=== PATIENT | female | born 1960 | race Caucasian/White ===

== ENCOUNTER 2019-03-17 16:22 | Observation (INO) | payer BC ==
--- NOTE | 2019-03-17 16:31 | ED ---
Abdominal Pain/Female - HPI Summary HPI Summary: 58-year-old female with no significant past medical history presents to the emergency department today complaining of 7 out of 10 stabbing abdominal pain which is located in her entire lower abdomen. She states the pain began last night and has been constant since then. She states the pain woke her up last evening and is relieved by sitting in a position. She states the pain radiates to her right flank. She states she has no appetite and she has not taken any medication for her symptoms prior to arrival and she worried it would bother her stomach. Patient denies history of abdominal surgery. Family history is noncontributory. She denies fevers, chills, blood per rectum, dark stools, diarrhea, nausea, vomiting, fever, rash, pain of urination, vaginal discharge. She admits to heavy smoking history, occasional alcohol use, no recreational drug use. - History of Current Complaint Chief Complaint: EDAbdPain Stated Complaint: ABDOMINAL PAIN PER PT Time Seen by Provider: 03/17/19 16:30 Hx Obtained From: Patient Onset/Duration: Sudden Onset Timing: Constant Severity Initially: Mild Severity Currently: Severe Pain Intensity: 7 Pain Scale Used: 0-10 Numeric Location: Discrete At: RLQ, Discrete At: LLQ Radiates: Yes Radiates to: Flank - Right flank Character: Sharp Aggravating Factor(s): Movement Alleviating Factor(s): Position - position Associated Signs and Symptoms: Positive: Decreased Appetite. Negative: Diaphoresis, Fever, Chest Pain, Constipation, Blood in Stool, Urinary Symptoms, Vaginal Bleeding, Vaginal Discharge, Nausea, Vomiting, Diarrhea Allergies/Adverse Reactions: Allergies Allergy/AdvReac Type Severity Reaction Status Date / Time No Known Allergies Allergy Verified 03/17/19 16:29 Home Medications: Home Medications NK [No Home Medications Reported] 03/17/19 [History Confirmed 03/17/19] PMH/Surg Hx/FS Hx/Imm Hx Musculoskeletal History: Denies: Hx Rheumatoid Arthritis, Hx Osteoporosis Infectious Disease History: No Infectious Disease History: Denies: Traveled Outside the [place] in Last 30 Days Review of Systems Constitutional: Negative Eyes: Negative ENT: Negative Cardiovascular: Negative Respiratory: Negative Positive: Abdominal Pain. Negative: Vomiting, Diarrhea, Nausea Genitourinary: Negative Musculoskeletal: Negative Skin: Negative Neurological: Negative Psychological: Normal All Other Systems Reviewed And Are Negative: Yes Physical Exam - Summary Physical Exam Summary: Inspection of the abdomen reveals no ecchymosis or masses. Auscultation reveals normoactive bowel sounds. Percussion is within normal limits. Palpation of the abdomen reveals tenderness to the left and right lower abdominal quadrants. Patient complains of rebound tenderness to the lower abdominal quadrants bilaterally. Negative Rovsing, Moore's, obturator, psoas, McBurney's sign. Triage Information Reviewed: Yes Vital Signs On Initial Exam: Initial Vitals Temp Pulse Resp BP Pulse Ox 97.9 F 79 16 117/77 99 03/17/19 16:26 12 16:26 03/17/19 16:26 03/17/19 16:26 03/17/19 16:26 Vital Signs Reviewed: Yes Appearance: Positive: Well-Appearing, No Pain Distress, Well-Nourished Skin: Positive: Warm, Skin Color Reflects Adequate Perfusion Eyes: Positive: EOMI, CHETAN ENT: Positive: Hearing grossly normal Respiratory/Lung Sounds: Positive: Clear to Auscultation, Breath Sounds Present Cardiovascular: Positive: RRR, S1, S2 Abdomen Description: Positive: Soft. Negative: CVA Tenderness (R), CVA Tenderness (L), Distended, Guarding, McBurney's Point Tenderness Bowel Sounds: Positive: Present Musculoskeletal: Positive: Strength/ROM Intact - Normoactive Neurological: Positive: Sensory/Motor Intact, Alert, Oriented to Person Place, Time, Normal Gait, Speech Normal Psychiatric: Positive: Normal AVPU Assessment: Alert Procedures - Sedation Patient Received Moderate/Deep Sedation with Procedure: No Diagnostics - Vital Signs Vital Signs Temp Pulse Resp BP Pulse Ox 03/17/19 16:26 97.9 F 79 16 117/77 99 - Laboratory Result Diagrams: 03/17/19 17:01 03/17/19 17:01 Lab Statement: Any lab studies that have been ordered have been reviewed, and results considered in the medical decision making process. Abdominal Pain Fem Course/Dx - Course Course Of Treatment: Patient was evaluated in the emergency department today for abdominal pain. Patient seen and examined her vitals are stable and she is afebrile. Labs show no evidence of leukocytosis with white blood count of 10.8. Elevated absolute neutrophil count at 9.6. C-reactive protein is 143.26 which is elevated. There are minor electrolyte disturbances but these are considered benign. Lipase is less than 10. - Diagnoses Differential Diagnosis: Positive: Appendicitis, Diverticulitis, Irritable Bowel Syndrome, Ovarian Cyst, Pancreatitis, Peptic Ulcer Disease, Renal Colic, Urinary Tract Infection Provider Diagnoses: Abdominal pain Discharge ED - Sign-Out/Discharge Documenting (check all that apply): Sign-Out Patient Signing out patient TO: Didi German Receiving patient FROM: Abhinav Moya - Discharge Plan Patient Education Materials: Acute Abdominal Pain (ED) Referrals: Yemi Estevez NP [Primary Care Provider] -
[2019-03-17] MEDS ORDERED: Ketorolac INJ* 30 MG/ML 1 ML VIAL IV ONE (16:46)
[2019-03-17 17:11] LABS: ABS Lymphocytes 0.5 10^3/ul (1.0-4.8); ABS Monocytes 0.7 10^3/ul (0-0.8); ABS Neutrophils 9.6 10^3/ul (1.5-7.7); Hematocrit 38 % (35-47); Hemoglobin 13.3 g/dL (12.0-16.0); Lymphocyte % 4.6 %; Mean Corpuscular HGB Conc 35 g/dL (31-36); Mean Corpuscular Hemoglobin 32 pg (27-31); Mean Corpuscular Volume 92 fL (80-97); Mean Platelet Volume 8.5 fL (7.4-10.4); Nucleated Red Blood Cells % 0.1; Platelet Count 193 10^3/uL (150-450); Red Blood Count 4.13 10^6 /uL (3.70-4.87); Red Cell Distribution Width 14 % (10-15); White Blood Count 10.8 10^3/uL (3.5-10.8)
[2019-03-17 17:26] LABS: ALT 13 U/L (7-52); AST 12 U/L (13-39); Albumin 4.3 g/dL (3.2-5.2); Albumin/Globulin Ratio 1.6 (1-3); Alkaline Phosphatase 60 U/L (34-104); Anion Gap 8 mmol/L (2-11); BUN/Creatinine Ratio 14.7 (8-20); Blood Urea Nitrogen 11 mg/dL (6-24); C Reactive Protein 143.26 mg/L (<8.01); CO2 Carbon Dioxide 26 mmol/L (22-32); Calcium 10.7 mg/dL (8.6-10.3); Chloride 100 mmol/L (101-111); EGFR African American 95.7 (>60); EGFR Non-African American 79.1 (>60); Globulin 2.7 g/dL (2-4); Glucose 116 mg/dL (70-100); Magnesium 1.7 mg/dL (1.9-2.7); Potassium 3.9 mmol/L (3.5-5.0); Sodium 134 mmol/L (135-145)
[2019-03-17] MEDS ORDERED: Morphine 4 MG/ML VIAL (1 ml) 4 MG/ML VIAL IV ONE ×2 (17:40→20:50)
[2019-03-17] MEDS ORDERED: Ondansetron INJ* 2 MG/ML VIAL IV ONE (17:40)
--- NOTE | 2019-03-17 17:49 | ED ---
Progress - Results/Orders Results/Orders: ct abd: IMPRESSION: 1. Findings compatible with acute sigmoid diverticulitis without complication. 2. Thickening involving the distal aspect of the appendix measuring 8 mm which is in the region of sigmoid inflammation. Thickening may be reactive, appendicitis however cannot be excluded. Re-Evaluation - Re-Evaluation First Eval Re-Evaluation Time: 18:46 Change: Improved Comment: feeling better Second Eval Re-Evaluation Time: 20:48 Comment: still tenderness of RLQ and LLQ, tender to mcburney point. will give more pain meds Course/Dx - Course Course Of Treatment: Patient was evaluated in the emergency department today for abdominal pain. Patient seen and examined her vitals are stable and she is afebrile. Labs show no evidence of leukocytosis with white blood count of 10.8. Elevated absolute neutrophil count at 9.6. C-reactive protein is 143.26 which is elevated. There are minor electrolyte disturbances but these are considered benign. Lipase is less than 10. CT abd shows divericulitis and potential appendicitis. will give cefepime and flagyl. discussed with dr mercado who looked at CT scan and said that is not appendicitis and does not need surgery. patient is in a lot of pain so will admit to hospitalist. dr nolasco agrees to admit. - Diagnoses Provider Diagnoses: Diverticulitis Discharge ED - Sign-Out/Discharge Documenting (check all that apply): Patient Departure, Receiving Sign-Out Receiving patient FROM: Abhinav Moya - Discharge Plan Condition: Stable Disposition: ADMITTED TO [facility] Referrals: Yemi Estevez NP [Primary Care Provider] - - Billing Disposition and Condition Condition: STABLE Disposition: Admitted to [facility]
[2019-03-17] MEDS ORDERED: Iohexol 300* (CONTRAST) 10 ML SDV IV ONE (19:12)
[2019-03-17 19:27] LABS: Urine Appearance Clear; Urine Bilirubin Negative (Negative); Urine Blood 1+ (Negative); Urine Color Yellow; Urine Glucose Negative (Negative); Urine Ketones 1+ (Negative); Urine Nitrite Negative (Negative); Urine Protein Negative (Negative); Urine Urobilinogen Negative (Negative)
[2019-03-17 19:31] LABS: Urine Bacteria Absent (Absent); Urine Red Blood Cell Trace(0-2/hpf) (Absent); Urine Squamous Epithelial Cell Present (Absent); Urine White Blood Cell Trace(0-5/hpf) (Absent)
[2019-03-17] MEDS ORDERED: metroNIDAZOLE IV 500 MG/100ML* 500 MG/100 ML BAG IVPB ONE (20:42)
[2019-03-17] MEDS ORDERED: Cefepime 2 GM in Dextrose(*) 2 GM/50 ML BAG IV ONE (20:42)
[2019-03-17] MEDS ORDERED: Morphine 4 MG/ML VIAL (1 ml) 4 MG/ML VIAL IV PRN (23:03)
[2019-03-17] MEDS ORDERED: Ketorolac INJ* 15 MG/ML 1 ML VIAL IV PUSH PRN (23:04)
[2019-03-17] MEDS ORDERED: Acetaminophen TAB* 325 MG PO PRN (23:05)
[2019-03-17] MEDS ORDERED: Ondansetron INJ* 2 MG/ML VIAL IV PRN (23:06)
[2019-03-17] MEDS ORDERED: Magnesium Sulfate 1 GM IV* 1 GM/100 ML BAG IV ONE (23:55)
[2019-03-18] MEDS: Lactated Ringers 1000 ML Bag* 1,000 ML IV SCH ×2 (00:19→08:31)
--- NOTE | 2019-03-18 01:02 | HP ---
CC: Yemi Estevez NP * ADMISSION HISTORY AND PHYSICAL: DATE OF ADMISSION: 03/17/19 PRIMARY CARE PHYSICIAN: Yemi Estevez NP. CHIEF COMPLAINT: Abdominal pain. HISTORY OF PRESENT ILLNESS: This is a 58-year-old female who is otherwise healthy, does state that she has some diarrheal-type symptoms whenever she get stressed and self-diagnosed as IBS but real no medical problems, comes in due to abdominal pain. The patient stated that she was in her usual state of health up until Monday morning when she was in [place] and she did not think about her lower abdominal pain and started driving on Monday, arrived in [place] and noted that her pain was getting worse. She did have dinner on Monday night thinking that the worst of the pain was over; however, at 11 p.m. on Monday, she woke up with waves of pain coming in to the point that she was not able to tolerate. She finally decided to come to the ER on evening as the pain would not subside on its own. She denied any accompanying nausea or vomiting. She denied any change in her bowel patterns, any fever or chills, any sick contacts, any other shortness of breath or cough, or any previous such episodes of abdominal pain. She was noted to have diverticulitis and was also concerned for having some kind of an appendiceal inflammation; however, review of the CAT scan from surgeon suggested that this is likely not appendix related and Medicine was consulted to admit the patient for better pain control. PAST MEDICAL HISTORY: As mentioned, there was no significant diagnosed medical problems. She is otherwise healthy. Does think that has some irritable bowel syndrome. PAST SURGICAL HISTORY: She has had a right Achilles tendon surgery and wisdom tooth removal. MEDICATIONS: Currently not taking any home medications. ALLERGIES: No known drug allergies. FAMILY HISTORY: Father at the age of 94, had a history of diverticulitis. Mother alive at age 89, otherwise healthy. Older brother also alive and well. SOCIAL HISTORY: She lives with her female partner who is also her healthcare proxy, otherwise full code. She has a history of smoking about 5 to 6 cigarettes on a daily basis for the last 40 years. Does drink alcohol on a nightly basis, usually a glass of wine but nothing more and the glass consists of a 6-ounce glass. Her last use of alcohol was for Thanksgiving with her family. She denies any other drug use. 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 REVIEW OF SYSTEMS: A 14-point review of systems did not reveal any new information other than what is mentioned in the HPI. PHYSICAL EXAMINATION GENERAL: The patient is awake, alert, and oriented x3, did not appear to be in any acute respiratory distress. VITAL SIGNS: In the ER, temperature max was noted to be 98.6, BP was noted to be 118/72, heart rate 63, respiration rate 16, saturating 97% on room air. HEAD AND NECK: Atraumatic, normocephalic. Bilateral pupils reactive. Oral mucosa was dry. Neck: Supple. No jugular venous distention. LUNGS: Clear to auscultation bilaterally. No wheezing, rhonchi, or rales. HEART: S1, S2. Regular rate and rhythm. ABDOMEN: Soft. Tender at the lower abdomen, worse at the left lower quadrant and some guarding was noted along with some rebound tenderness. EXTREMITIES: No cyanosis, clubbing, or edema. DIAGNOSTIC STUDIES/LAB DATA: CBC was unremarkable. Comprehensive metabolic panel shows mildly decreased sodium at 134 and magnesium minimally decreased at 1.7. C- reactive protein was noted to be elevated at 143. Lipase was noted to be less than 10. Urinalysis was negative for any leuk esterase or nitrite. CT abdomen and pelvis showed findings compatible with acute sigmoid diverticulitis without complication, thickening involving the distal aspect of the appendix measuring 8 mm, which is in the region of sigmoid inflammation, thickening may be reactive appendicitis; however, cannot be excluded. IMPRESSION: This is a 58-year-old female here with lower abdominal pain likely secondary to diverticulitis. ASSESSMENT AND PLAN: 1. Abdominal pain secondary to acute diverticulitis. We will start the patient on Cipro, Flagyl. Keep the patient n.p.o. and on IV hydration. Start the patient on p.r.n. pain medications and nausea medications. Could consider GI versus surgical consult in the morning if her symptoms did not improve. 2. Hyponatremia. Likely secondary to dehydration. 3. Hypomagnesemia. We will replace magnesium. 4. Code status: Full code. 5. DVT prophylaxis with sequential compression device. [id number]/[facility] #: [id number] [facility]
[2019-03-18] MEDS: Morphine INJ* 4 MG/ML 1 ML SYRINGE (NEW SYRINGE VERSION) IV PRN ×3 (03:46→13:07)
[2019-03-18 05:27] LABS: ABS Lymphocytes 0.9 10^3/ul (1.0-4.8); ABS Monocytes 0.7 10^3/ul (0-0.8); ABS Neutrophils 8.6 10^3/ul (1.5-7.7); Eosinophil % 0.1 %; Hematocrit 36 % (35-47); Hemoglobin 12.5 g/dL (12.0-16.0); Lymphocyte % 8.7 %; Mean Corpuscular HGB Conc 35 g/dL (31-36); Mean Corpuscular Hemoglobin 32 pg (27-31); Mean Corpuscular Volume 92 fL (80-97); Mean Platelet Volume 8.7 fL (7.4-10.4); Platelet Count 160 10^3/uL (150-450); Red Blood Count 3.87 10^6 /uL (3.70-4.87); Red Cell Distribution Width 13 % (10-15); White Blood Count 10.2 10^3/uL (3.5-10.8)
[2019-03-18] MEDS: metroNIDAZOLE IV 500 MG/100ML* 500 MG/100 ML BAG IVPB SCH ×3 (05:40→22:06)
[2019-03-18 05:48] LABS: BUN/Creatinine Ratio 14.1 (8-20); Calcium 9.5 mg/dL (8.6-10.3); EGFR African American 91.5 (>60); EGFR Non-African American 75.6 (>60); Potassium 3.9 mmol/L (3.5-5.0)
[2019-03-18] MEDS: Ciprofloxacin 400MG IVPREMIX(* 400 MG/200 ML BAG IVPB SCH ×2 (08:29→19:46)
--- NOTE | 2019-03-18 14:34 | PN ---
Progress Note - Progress Note Date of Service: 03/18/19 Note: Surgery Consult dictated. CT reviewed w/ Dr. Daley (who also reviewed w/ radiology); no real concern for acute appendicitis. All appears to be c/w acute diverticulitis. Agree w/ current IV abx and relative bowel rest (clear liqs should be ok). No need for immediate or urgent surgical intervention. We will follow closely while she is an inpatient.
--- NOTE | 2019-03-18 16:38 | PN ---
Progress Note - Progress Note Date of Service: 03/18/19 Note: pt seen/examined, ct scan reviewed imp : diverticulitis plan: conservative tx- IV abx, daily eval
--- NOTE | 2019-03-18 17:08 | PN ---
Subjective Date of Service: 03/18/19 Interval History: Ms. Thomas is not particularly feeling better. She is still having significant abdominal pain. Morphine is helping take the pain from 8/10 to 6/ 10. She has been able to tolerate a small amount of soft food without any worsening pain. No N/V/D. No concerns from nursing. Family History: Unchanged from Admission Social History: Unchanged from Admission Past Medical History: Unchanged from Admission Objective Active Medications: Acetaminophen (Tylenol Tab*) 650 mg PO Q4H PRN PAIN - MILD Ciprofloxacin/Dextrose (Cipro 400 Mg Ivpremix(*)) 400 mg in 200 mls @ 200 mls/ hr IVPB Q12H DENA; Protocol Metronidazole/Sodium Chloride (Flagyl 500 Mg Ivpb*) 500 mg in 100 mls @ 100 mls /hr IVPB 0600,1400,2200 DENA Lactated Ringer's (Lactated Ringers 1000 Ml Bag*) 1,000 mls @ 150 mls/hr IV PER RATE DENA Ketorolac Tromethamine (Toradol Inj*) 15 mg IV PUSH Q6H PRN PAIN - MODERATE Morphine Sulfate (Morphine Inj (Syringe)*) 4 mg IV Q4H PRN PAIN - SEVERE Ondansetron HCl (Zofran Inj*) 4 mg IV Q4H PRN NAUSEA/VOMITING Vital Signs - 8 hr 03/18/19 03/18/19 03/18/19 09:53 11:00 13:07 Temperature Pulse Rate 59 Respiratory 18 17 20 Rate Blood Pressure 110/66 (mmHg) O2 Sat by Pulse 95 Oximetry 03/18/19 03/18/19 15:00 15:30 Temperature 99.8 F Pulse Rate 55 Respiratory 16 16 Rate Blood Pressure 104/59 (mmHg) O2 Sat by Pulse 98 Oximetry Oxygen Devices in Use Now: None Appearance: Middle-aged female lying in bed in NAD Ears/Nose/Mouth/Throat: Mucous Membranes Moist Neck: NL Appearance and Movements; NL JVP, Trachea Midline Respiratory: Symmetrical Chest Expansion and Respiratory Effort, Clear to Auscultation Cardiovascular: NL Sounds; No Murmurs; No JVD, RRR Abdominal: - - Normoactive BS, tender throughout, worst in LLQ Neurological: Alert and Oriented x 3 Lines/Tubes/Other Access: Clean, Dry and Intact Peripheral IV Nutrition: Taking PO's Result Diagrams: 03/18/19 05:05 03/18/19 05:05 Assess/Plan/Problems-Billing Assessment: Ms. Thomas is a 58 yo F with no significant PMH; who presented to the ED with c/o abdominal pain and was found to have acute diverticulitis with CT findings concerning for possible appendicitis. - Patient Problems (1) Acute diverticulitis Code(s): K57.92 - DVTRCLI OF INTEST, PART UNSP, W/O PERF OR ABSCESS W/O BLEED Comment: - Presented with abdominal pain - CT showing findings compatible with sigmoid diverticulitis with thickening involving the distal aspect of the appendix - Appreciate Surgery consult; no concerns for appendicitis, recommends IV abx - Advance to soft diet as tolerated - Continue cipro, Flagyl, morphine (2) DVT prophylaxis Code(s): Z29.9 - ENCOUNTER FOR PROPHYLACTIC MEASURES, UNSPECIFIED Comment: - SCDs (3) Full code status Code(s): Z78.9 - OTHER SPECIFIED HEALTH STATUS Comment: Status and Disposition: Observation. Anticipate d/c home tomorrow if medically stable. Attending: Chase Goldberg
[2019-03-18] MEDS: oxyCODONE/Acetamin 5/325 MG* TAB PO PRN ×2 (17:22→23:18)
--- NOTE | 2019-03-18 18:05 | CONS ---
CC: Yemi Estevez NP, [facility] * SURGICAL CONSULTATION NOTE: DATE OF CONSULT: 03/18/19 ATTENDING SURGEON: Dr. Yohannes Daley.* (DICTATED BY AURA TSAI) HISTORY OF PRESENT ILLNESS: This is a 58-year-old generally healthy female who noted onset of mid abdominal pain Monday morning while visiting family in [place]. She was able to travel home and eat normally Monday evening. However, late Monday evening, she began to experience colicky mid to lower abdominal pain, which she states reached a level of 8/10 at peak. She states that pain continued to wax and wane throughout the night and through the day on Monday and she eventually presented to the ED later in the day on Monday. She denies nausea or vomiting. She denies fever, though did feel a bit chilled a couple of times. Her last bowel movement was Monday and described as normal. She has not passed much gas over the last 24 to 48 hours. She has not had any prior similar symptoms, though does state that she has self diagnosed irritable bowel syndrome, which is diarrhea predominant and generally controlled by diet. She has not had any symptoms. Prior colonoscopy was done in 2009 which she states was a normal study. She is not aware of any findings of diverticulosis at that time and that report is not immediately available. There was a family history of diverticulitis. PAST MEDICAL HISTORY: Possible irritable bowel syndrome, diarrhea predominant. PAST SURGICAL HISTORY: Previous surgeries include right Achilles tendon repair and dental extractions. CURRENT MEDICATIONS: She takes no prescription medications at home, but does take the following supplements: 1. Vitamin D. 2. Calcium. 3. Multivitamin. 4. Kosovan herbal medications for menopausal symptoms. Current in-hospital medications include: 1. IV Cipro. 2. Flagyl. FAMILY HISTORY: Negative for anesthesia problems, bleeding or clotting disorders. SOCIAL HISTORY: The patient lives with her partner. 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 Per her chart history, she smokes 5 to 6 cigarettes per day for the past 40 years and drinks on average 1 glass of wine per day. REVIEW OF SYSTEMS: As per the admission history and physical. No additions. PHYSICAL EXAM: Height 5 feet 9-1/2 inches, weight 148 pounds. T-max 100.2, most recent 99.6; blood pressure 108/60; pulse 63; respirations 16; room air saturation 96%. General: Well-nourished, well-developed female, in no acute distress, though she appears mildly uncomfortable. Skin: Warm and dry. No suspicious rashes or lesions. HEENT: Pupils are equal and round, reactive. EOMs intact. No conjunctival pallor. Oropharynx: Mucous membranes slightly dry. No intraoral lesions. Neck: No lymphadenopathy, thyromegaly, or masses. Heart: Regular rate and rhythm. No murmur appreciated. Lungs: Clear to auscultation. No rales or wheezes. Abdomen: Mildly distended, slightly firm. Bowel sounds present. She has tenderness in the lower mid abdomen, predominant slightly to the right of midline. Tenderness decreases laterally. There is some mild tenderness in the left lower quadrant as well, though not as pronounced. No flank tenderness. No upper abdominal tenderness. No peritoneal signs. Genitalia and Rectal: Not done. DIAGNOSTIC STUDIES/LAB DATA: White blood cell count on admission 10,800 with repeat 10,200 and without significant shift, hemoglobin 12.5. Chemistries: Generally within normal limits with the exceptions of sodium 133, magnesium 1.7 , total bilirubin 1.5, CRP of 143. Liver function tests and lipase were normal. CT scan with oral and IV contrast was personally reviewed and with Dr. Daley. This shows sigmoid diverticulosis with inflammatory changes consistent with acute diverticulitis. No evidence of perforation. There was felt to be some thickening of the distal appendix measuring up to 8 mm, but upon review by Dr. Daley with one of the radiologists today, this was not felt to represent acute appendicitis. IMPRESSION: Acute diverticulitis, uncomplicated. PLAN: Agree with current plan for IV antibiotics and relative bowel rest. The patient seems to be tolerating clear liquids well. The patient will be seen by Dr. Daley as well to confirm findings and impression. We will follow daily while she is an in- house patient. AURA TSAI [id number]/[facility] #: [id number] MTDD
[2019-03-18] MEDS: Lactobacillus Acidophilus* 1 TAB PO SCH (19:45)
[2019-03-19] MEDS: metroNIDAZOLE IV 500 MG/100ML* 500 MG/100 ML BAG IVPB SCH (05:39)
[2019-03-19] MEDS: oxyCODONE/Acetamin 5/325 MG* TAB PO PRN (05:54)
[2019-03-19 07:15] VITALS: BP 121/69
[2019-03-19] MEDS: Lactobacillus Acidophilus* 1 TAB PO SCH (08:07)
[2019-03-19] MEDS: Ciprofloxacin 400MG IVPREMIX(* 400 MG/200 ML BAG IVPB SCH (08:08)
--- NOTE | 2019-03-19 09:35 | PN ---
Progress Note - Progress Note Date of Service: 03/19/19 Note: Surgery Progress: S: feeling better; pain controlled w/ Percocet; passing flatus O: Vital Signs - 8 hr 03/19/19 03/19/19 03/19/19 03:15 03:52 05:54 Temperature 98.8 F Pulse Rate 44 Respiratory 16 19 18 Rate Blood Pressure 93/54 (mmHg) O2 Sat by Pulse 99 Oximetry 03/19/19 03/19/19 03/19/19 07:14 08:10 08:21 Temperature 98.1 F Pulse Rate 52 Respiratory 16 16 16 Rate Blood Pressure 121/69 (mmHg) O2 Sat by Pulse 99 Oximetry Intake and Output Last 24 Hours 03/17/19 03/18/19 03/19/19 03/20/19 06:59 06:59 06:59 06:59 Intake Total 150 4273 Output Total 1999 Balance 150 2273 Weight 148 lb Intake: IV Fluids 150 2803 ABX - CIPROFLOXACIN 216 LR 2216 NS 35 IVPB 450 ABX - CIPROFLOXACIN 200 ABX - FLAGYL 220 NS 30 Oral 0 1020 Output: Urine 1999 Other: Estimated Void Large # Voids 1 Heart: reg; mildly darya Lungs: clear Abd: +BS; less firm; less tender vs 03/18. No peritoneal signs. A: diverticulitis, improving P: per hosp: home today on Cipro/flagyl. Will set up surgical f/u in ~ 2 wks. Will need colonoscopy in near future (6-[address] Daley aware of plan.
--- NOTE | 2019-03-19 21:57 | DS ---
CC: Yemi Estevez NP; Dr. Yohannes Daley * DISCHARGE SUMMARY: DATE OF ADMISSION: 03/17/19 DATE OF DISCHARGE: 03/19/19 PRIMARY CARE PROVIDER: Yemi Estevez NP ATTENDING PHYSICIAN: Dr. Chase Goldberg.* (DICTATED BY EMILY WICK NP) PRIMARY DIAGNOSIS: Acute sigmoid diverticulitis. STUDIES WHILE IN THE HOSPITAL: Abdomen and pelvis CT on 03/17/19 reads as the findings compatible with acute sigmoid diverticulitis without complications, thickening involving the distal aspect of the appendix measuring 8 mm which is on the region of sigmoid inflammation, thickening may be reactive, and appendicitis, however, cannot be excluded. HISTORY OF PRESENT ILLNESS AND HOSPITAL COURSE: Ms. Thomas is a 58-year-old female with no significant past medical history, who presented to the emergency room on 03/17/19 with complaints of abdominal pain. Please see the history and physical by Dr. Whitaker, for a complete summary of the events leading up to this hospitalization. In short, the patient began having abdominal pain approximately 2 days prior to admission. Ultimately, the pain became severe enough that she was unable to tolerate it and so she presented to the emergency room. In the emergency room, she had a CT as noted above, which was remarkable for acute diverticulitis. There was no leukocytosis, fever, tachypnea or tachycardia. CRP was noted to be elevated at 143. She was admitted by the hospitalist service. The patient was started on ciprofloxacin and Flagyl for treatment of diverticulitis. Because of concern for possible appendicitis, Surgery was consulted and the patient was seen by Dr. Daley on 03/18/19. At that point, he did not have any concerns about appendicitis and recommended continuing current management. The patient was able to tolerate clear liquids yesterday and had a small amount of solid food last night. She was still having significant pain yesterday and was requiring IV morphine. The patient was able to use Percocet overnight last night with good relief of pain and did not require any additional morphine. She reports that pain generally has improved significantly. She was able to tolerate a solid breakfast this morning. AURA Naik from Surgery did see the patient again this morning and advised that the patient would need followup with surgery in approximately 2 weeks and a colonoscopy in the near future in approximately 6 to 8 weeks. On exam, the patient is alert and oriented x4. She has no focal neurological deficits. Heart has a regular rate and rhythm without murmurs, rubs, or gallops. Lungs are clear to auscultation without rhonchi, wheezes, or rubs. Abdomen is soft, slightly distended, diffusely tender throughout, worse in the left lower quadrant. Bowel sounds are normoactive. Physical exam was otherwise benign. Ms. Thomas is stable for discharge today. Most recent vitals are as follows: Temp 98.1, heart rate 52, respiratory rate 16, oxygen saturation 99% on room air , blood pressure 121/69. DISCHARGE MEDICATIONS: New medications: 1. Ciprofloxacin 500 mg p.o. b.i.d. x8 days. 2. Flagyl 500 mg p.o. t.i.d. x5 days. 3. Percocet 5/325 one tab p.o. q.4 hours p.r.n. pain. 4. Lactobacillus 1 tab p.o. b.i.d. DISCHARGE PLAN: Ms. Thomas will be discharged home. Activity will be as tolerated. Diet will be regular as tolerated, though she understands that she will need to gradually increase her diet over the next few days. Medications are noted above. The patient will need to complete 8 days of Cipro and Flagyl to complete a total of 10 days of antibiotic therapy for her acute diverticulitis. I have sent in a small supply of Percocet for any lingering abdominal pain and I have advised her that she can use a probiotic twice daily while she is on the antibiotics, but she has had difficulty tolerating antibiotics in the past due to GI side effects. I did provide her with a work note indicating that she will remain out of work for the rest of this week and can return to work next week. She will need to follow up with her primary care provider in the next 4 to 7 days. Again, she will need to follow up with Dr. Daley in the office in approximately 2 weeks. The surgical team will set up that appointment and contact the patient. Additionally, she will need to have a colonoscopy in approximately 6 to 8 weeks, which will be arranged by Dr. Daley. The patient should return to the emergency room or nearest hospital for any worsening of symptoms, shortness of breath, lightheadedness, dizziness, chest discomfort, high fevers, chills, night sweats, loss of consciousness, or any other worrisome signs or symptoms. DISCHARGE CONDITION: Stable. DISCHARGE DISPOSITION: Home. This is a summarized report of a complex medical history and hospital stay. For further details, please see the entire medical record. TIME SPENT: Approximately 45 minutes was spent on this discharge. EMILY WICK [employer] [id number]/CPS #: [id number] NATALIYA
== END 2019-03-19 10:00 | disposition home or self-care (01) ==
LOC: ED 16:22 → SSU 23:06 → INTOOBSV 23:06
PROVIDERS: ADMIT Internal Medicine; ATTEND Internal Medicine
DX: K57.92 Diverticulitis of intestine, part unspecified, without perforation or abscess without bleeding (principal); R10.9 Unspecified abdominal pain; Z79.899 Other long term (current) drug therapy; Z87.891 Personal history of nicotine dependence
CPT/HCPCS: 36415; 74177; 80048; 80053; 81003; 81015; 83690; 83735; 85025; 86140; 87086; 96365; 96366; 96367; 96375; 96376; 99284; A9270-GY; G0378; J0692; J0744; J1885; J2270; J2405; J3475; Q9967